=== PATIENT | male | born 1985 | race Caucasian/White ===

== ENCOUNTER 2018-02-18 12:08 | Emergency (ER) | payer OTHER ==
[2018-02-18 12:11] VITALS: TEMP 37.2
[2018-02-18 12:36] VITALS: O2SAT 99
[2018-02-18] MEDS ORDERED: LIDOCAINE/EPINEPH/TETRACAINE 1 EA SYR EXT STA ×2 (12:36→12:47)
[2018-02-18] MEDS ORDERED: CHLORHEXIDINE GLUCONATE 0.12% 480 ML MT STA (12:52)
[2018-02-18] MEDS ORDERED: DIPHTHERIA/TETANUS/PERTUSSIS 0.5 ML SYR/VIAL IM. ONE (13:00)
--- NOTE | 2018-02-18 13:04 | EMERGENCY ROOM VISIT NOTE ---
ED Visit Note First contact with patient: 12:28 CHIEF COMPLAINT: Syncope, head injury, facial laceration HISTORY OF PRESENTING ILLNESS: This is a 33-year-old male who presents to the emergency department with concern for syncopal episode and facial injury today. Patient states that he was at work and was working with a metal told that has a hook on the end, he states that he slipped and the hook hit him in the palm of his left hand. He states that he pulled the hook out of his hand and shortly after that he began to feel lightheaded, hot and sweaty, and felt like he was going to pass out. The patient states "the next thing I knew I was on the ground and there was blood everywhere." Patient's coworkers report that he passed out and fell forward, striking his chin on a concrete sidewalk. He was unconscious for approximately 1 minute. He has a laceration to his chin, as well as some lacerations to his tongue. Patient does not have any confusion or loss of memory, he denies any headache, vision changes, neck pain or stiffness, numbness/tingling or weakness of the extremities, difficulty walking, or problems with his balance. He denies any nausea or vomiting after the episode. He does report that he needs a tetanus shot. REVIEW OF SYSTEMS: A complete 10 point review of systems was reviewed with the patient with pertinent positives and negatives as per history of present illness. All else were negative. PAST MEDICAL HISTORY: No significant past medical or surgical history. SOCIAL HISTORY: Lives at home. He is a current everyday smoker. ALLERGIES: Reviewed in chart, see below. PHYSICAL EXAM: CONSTITUTIONAL: Pleasant and cooperative. No acute distress. Well appearing and well nourished. HEENT: Normocephalic. Laceration and contusion to the inferior chin. PERRLA, EOMI. TMs normal, no hemotympanum bilaterally. Pharynx normal. There are superficial lacerations noted to the inferior aspect of the tongue bilaterally, no deep or full thickness lacerations and no lacerations that extend through the border of the tongue. No loose, chipped, or broken teeth. Airway patent. NECK: Supple, full active range of motion without discomfort. No tenderness to palpation of the cervical spinous processes. RESPIRATORY: Clear to auscultation bilaterally with no wheezing, crackles, rhonchi or stridor. Equal expansion bilaterally. CARDIOVASCULAR: Regular rate and rhythm with no murmurs, rubs or gallops. Normal peripheral perfusion. No edema. GASTROINTESTINAL: Soft, nontender, nondistended. No palpable masses or HSM. Bowel sounds present in all quadrants. MUSCULOSKELETAL: Full range of motion of all joints without discomfort. INTEGUMENTARY: No rash or other significant dermatologic conditions noted. NEUROLOGIC: Alert and oriented X 4 with normal affect. Cranial nerves II-XII grossly intact, no facial droop. No pronator drift. No focal neurologic deficits noted. Normal strength and sensation in all 4 extremities. Normal speech. Normal gait observed. Normal [id number] testing, negative Romberg. ED COURSE AND MEDICAL DECISION MAKING: CC: Patient presenting with complaint of syncope, head injury, facial laceration DIFFERENTIAL DIAGNOSIS: Includes, but not limited to vasovagal, orthostatic, cardiac dysrhythmia, intracranial hemorrhage, skull fracture, facial bone fracture, laceration, open fracture, among others. IMAGING: CT OF THE HEAD WITHOUT CONTRAST CLINICAL HISTORY: Syncope. Head injury. COMPARISON STUDY: No previous studies for comparison. CT DOSE: 756.83 mGy.cm TECHNIQUE: Helical axial images of the head were obtained without IV contrast. Automated exposure control was utilized for the study. A dose lowering technique was utilized adhering to the principles of ALARA. FINDINGS: No acute intracranial hemorrhage, midline shift or mass effect is present. Ventricular system is normal. Basilar cisterns are patent. There are no extra-axial collections. Crane-white differentiation is maintained. There are no findings to suggest acute dural sinus thrombosis or acute territorial infarct. There is no calvarial fracture. Visualized portions of the sinuses and mastoid air cells are clear. IMPRESSION: 1. No acute intracranial findings. 2. No calvarial fracture. ----- CT SCAN OF THE FACIAL BONES WITHOUT IV CONTRAST CLINICAL HISTORY: Syncope. Facial injury. Jaw pain. COMPARISON STUDY: CT of the brain performed concurrently on 02/18/2018. TECHNIQUE: High-resolution CT scan of the facial bones is performed. Images are reviewed in the axial, sagittal, and coronal planes. IV contrast was not administered for this examination. A dose lowering technique was utilized adhering to the principles of ALARA. FINDINGS: The skeletal structures are well mineralized. There is a small and minimally distracted chip fracture seen from the inferior aspect of the right anterior mandible on image #19. There is overlying soft tissue injury/laceration. The temporomandibular joints are preserved. The maxilla is intact. No additional facial bone fracture is seen. The bony orbits are intact and the orbital contents are within normal limits. The zygomatic arches, nasal bones, and pterygoid plates are preserved. There are no layering blood products within the paranasal sinuses. There is a retention cyst in the right maxillary antrum. The remaining nasal sinuses are clear. The mastoid air cells are well pneumatized. The visualized calvarium and upper cervical spine are maintained. Partially imaged brain parenchyma is within normal limits. Numerous calcified tonsilliths are observed. IMPRESSION: 1. There is a small chip fracture seen along the inferior aspect of the right anterior mandible with overlying soft tissue injury/laceration. 2. No additional facial bone fracture is identified. EKG: Shows sinus rhythm with sinus arrhythmia, with a rate of 67 bpm, right bundle branch block, no acute ST or T-wave changes, no ectopy by my interpretation. No previous EKGs available for comparison. LACERATION REPAIR: Verbal consent was obtained from the patient. After achieving appropriate anesthesia with LET gel, the laceration site was cleansed with chlorhexidine. One suture of 6-0 Vicryl was used to close the periosteum, and 6 additional subcuticular sutures of 6-0 Vicryl were placed, then the skin edges were closed with 3 layers of Dermabond with good wound closure, edges well approximated, bleeding controlled. Patient tolerated the procedure well with no known complications. MEDICATION RECONCILIATION: I attest that I have personally reviewed the patient 's current medication list. INITIAL VITAL SIGNS REVIEW: I reviewed the patient's initial vital signs and interpret them as follows: T: Afebrile; BP: Hypertensive; HR: Within normal limits; RR: Within normal limits; Pulse Ox: Within normal limits on room air. Blood pressure screening: The patient was found to have an elevated blood pressure, which was felt to be situational. SUMMARY: Patient was evaluated at bedside, history and physical exam performed. Patient is alert and oriented, in no acute distress, resting calmly in stretcher. Neurologic exam is normal with no focal deficits. Chin laceration noted as above, extending through the periosteum. Orders were placed at bedside for Tylenol for pain, Boostrix to update his tetanus, CT head and facial bones to evaluate for trauma. Patient discussed with Dr. Whaley, who agrees with my assessment and plan. Imaging reviewed as above, notable for a bone chip fracture of the mandible in the area of the chin laceration, no other acute findings. The patient was given a dose of Keflex and Rx for Keflex was sent to the pharmacy, he was educated regarding this medication. Wound closure of the chin laceration as per procedure note above. Tongue lacerations appear to be superficial and did not require closure. Patient reassessed multiple times throughout ED stay, is remained stable, pain is improved, and he feels comfortable with going home. Patient was updated on all results and plan for discharge, he was encouraged to follow closely with his PCP. He was also educated regarding wound care and concussion precautions Patient was also given strict return precautions should his symptoms worsen, he verbalized understanding. Patient was discharged home in stable condition and ambulatory. Current/Historical Medications Scheduled Cephalexin Monohydrate (Keflex), 500 MG PO QID Allergies Coded Allergies: Penicillins (Unverified Allergy, Intermediate, rash, 02/18/18) Ibuprofen (Unverified Adverse Reaction, Mild, sleepy, 02/18/18) Vital Signs Date Time Temp Pulse Resp B/P (MAP) Pulse Ox O2 Delivery O2 Flow Rate FiO2 02/18/18 15:46 65 16 136/91 95 Room Air 02/18/18 14:15 70 16 130/84 100 Room Air 02/18/18 12:36 99 Room Air 02/18/18 12:23 68 02/18/18 12:11 37.2 68 20 140/75 99 Room Air Medications Administered Medications (Trade) Dose Ordered Sig/Asya Route Start Time Stop Time Status Last Admin Dose Admin Tetracaine/ Epinephrine/ Lidocaine (L.e.t. Gel 4%/ 1:100/0.5%) 1 ea UD STAT EXT 02/18/18 12:36 02/18/18 12:37 DC 02/18/18 12:36 1 EA Tetracaine/ Epinephrine/ Lidocaine (L.e.t. Gel 4%/ 1:100/0.5%) 1 ea UD STAT EXT 02/18/18 12:47 02/18/18 12:49 DC 02/18/18 12:47 1 EA Chlorhexidine Gluconate (Peridex Oral Soln) 15 ml NOW STAT MT 02/18/18 12:52 8/22/18 12:53 DC 02/18/18 14:10 15 ML Diphtheria/ Pertussis/Tetanus Vacc (Adacel Inj) 0.5 ml ONCE ONCE IM. 02/18/18 13:00 02/18/18 13:01 DC 02/18/18 14:11 0.5 ML Cephalexin Monohydrate (Keflex Cap) 500 mg NOW ONCE PO 02/18/18 15:45 02/18/18 15:46 DC 02/18/18 15:43 500 MG Acetaminophen (Tylenol Tab) 1,000 mg NOW STAT PO 02/18/18 15:32 02/18/18 15:33 DC 02/18/18 15:44 1,000 MG Departure Information Impression Primary Impression: Syncope, vasovagal Additional Impressions: Laceration of chin with complication Mandible open fracture Dispostion Home / Self-Care Condition GOOD Prescriptions Cephalexin Monohydrate (Keflex) 500 Mg Cap 500 MG PO QID for 7 Days, #28 CAP Prov: Bettie Israel CRNP 02/18/18 Patient Instructions ED Fx Mandible, ED Laceration Chin Skin Glue, ED Syncope Vasovagal, On License Of [facility] Additional Instructions You have been evaluated and treated in the emergency department today for your syncopal episode, facial trauma and chin laceration. CT scan of your facial bones shows a bone chip fracture of your chin (mandible). You were prescribed Keflex to be taken 4 times a day for 7 days. This is an antibiotic. All antibiotics have the potential to cause diarrhea. Stop this medication and contact a medical provider if you were to develop any significant adverse side effects including: wheezing, shortness of breath, passing out, vomiting, or a diffuse rash. Always take antibiotics as directed and COMPLETE the ENTIRE course regardless of the improvement of your symptoms. The laceration was repaired using 7 dissolving sutures that will not need to be removed, and the skin was closed with Dermabond (skin glue). The Dermabond should fall off naturally over the next 5-7 days. Do not pick at the glue, and do not apply ointments or lotions to the glue. You may wash over the area with soap and water, but do not scrub over the glued area. Pat dry after washing. Keep covered when in sun until the wound is fully healed, then SPF 50 or higher for one year. Vitamin E oil if desired two weeks after the glue has fallen off for reduction of scar. Ice and elevate for swelling and pain. Ibuprofen 600 mg and Tylenol 650 mg every 6 hours as needed for pain. As with all lacerations, there may be temporary or permanent nerve damage or scarring. Keep covered when in sun until sutures removed then SPF 50 or higher for one year. Vitamin E oil if desired two weeks after suture removal for reduction of scar. Please seek immediate medical attention for any signs of infection (increasing redness, severe swelling, increased pain, pus drainage, streaking up the hand/ arm, fever/chills), or for any other concerns. Please follow-up with your primary care provider in the next few days for recheck. Work Instructions Return To Work: 1 day Problem Qualifiers Additional Impressions: Laceration of chin with complication Encounter type: initial encounter Qualified Codes: S01.81XA - Laceration without foreign body of other part of head, initial encounter Mandible open fracture Encounter type: initial encounter Mandible location: unspecified site of mandible Laterality: unspecified laterality Qualified Codes: S02.609B - Fracture of mandible, unspecified, initial encounter for open fracture
--- NOTE | 2018-02-18 13:38 | DIAGNOSTIC IMAGING REPORT ---
CT OF THE HEAD WITHOUT CONTRAST CLINICAL HISTORY: Syncope. Head injury. COMPARISON STUDY: No previous studies for comparison. CT DOSE: 756.83 mGy.cm TECHNIQUE: Helical axial images of the head were obtained without IV contrast. Automated exposure control was utilized for the study. A dose lowering technique was utilized adhering to the principles of ALARA. FINDINGS: No acute intracranial hemorrhage, midline shift or mass effect is present. Ventricular system is normal. Basilar cisterns are patent. There are no extra-axial collections. Crane-white differentiation is maintained. There are no findings to suggest acute dural sinus thrombosis or acute territorial infarct. There is no calvarial fracture. Visualized portions of the sinuses and mastoid air cells are clear. IMPRESSION: 1. No acute intracranial findings. 2. No calvarial fracture. Electronically signed by: Ambrosio Mota M.D. 02/18/2018 1:37 PM Dictated Date/Time: 02/18/2018 1:34 PM
--- NOTE | 2018-02-18 14:02 | DIAGNOSTIC IMAGING REPORT ---
CT SCAN OF THE FACIAL BONES WITHOUT IV CONTRAST CLINICAL HISTORY: Syncope. Facial injury. Jaw pain. COMPARISON STUDY: CT of the brain performed concurrently on 02/18/2018. TECHNIQUE: High-resolution CT scan of the facial bones is performed. Images are reviewed in the axial, sagittal, and coronal planes. IV contrast was not administered for this examination. A dose lowering technique was utilized adhering to the principles of ALARA. FINDINGS: The skeletal structures are well mineralized. There is a small and minimally distracted chip fracture seen from the inferior aspect of the right anterior mandible on image #19. There is overlying soft tissue injury/laceration. The temporomandibular joints are preserved. The maxilla is intact. No additional facial bone fracture is seen. The bony orbits are intact and the orbital contents are within normal limits. The zygomatic arches, nasal bones, and pterygoid plates are preserved. There are no layering blood products within the paranasal sinuses. There is a retention cyst in the right maxillary antrum. The remaining nasal sinuses are clear. The mastoid air cells are well pneumatized. The visualized calvarium and upper cervical spine are maintained. Partially imaged brain parenchyma is within normal limits. Numerous calcified tonsilliths are observed. IMPRESSION: 1. There is a small chip fracture seen along the inferior aspect of the right anterior mandible with overlying soft tissue injury/laceration. 2. No additional facial bone fracture is identified. Electronically signed by: Spencer Luong M.D. 02/18/2018 2:01 PM Dictated Date/Time: 02/18/2018 1:36 PM
[2018-02-18] MEDS ORDERED: LIDOCAINE/EPINEPHRINE 1% 20 ML VIAL INFIL ONE (14:45)
[2018-02-18] MEDS ORDERED: ACETAMINOPHEN 500 MG TAB PO STA (15:32)
[2018-02-18] MEDS ORDERED: CEPH500C PO (15:43)
[2018-02-18] MEDS ORDERED: CEPHALEXIN MONOHYDRATE 250 MG CAP PO ONE (15:45)
[2018-02-18 15:46] VITALS: BP 136/91; PULSE 65; O2SAT 95
== END 2018-02-18 16:03 | disposition home or self-care (01) ==
LOC: C.EDA 12:11
DX: S02.609B Fracture of mandible, unspecified, initial encounter for open fracture (principal); W01.198A Fall on same level from slipping, tripping and stumbling with subsequent striking against other object, initial encounter; Y92.89 Other specified places as the place of occurrence of the external cause; Y99.0 Civilian activity done for income or pay; R55 Syncope and collapse; Z23 Encounter for immunization; F17.210 Nicotine dependence, cigarettes, uncomplicated